=== PATIENT | female | born 1975 | race African-American/Black ===

== ENCOUNTER 2016-10-06 18:04 | Emergency (ER) | payer OTHER ==
[~2016-10-06] VITALS: Ht 157.5 cm; Wt 68.0 kg
[2016-10-06 18:28] VITALS: BP 156/85
[2016-10-06] MEDS ORDERED: IBUPROFEN 600 MG TAB PO ONE (20:15)
[2016-10-06] MEDS ORDERED: ONDANSETRON ODT 4 MG TAB PO ONE (20:15)
== END 2016-10-06 21:50 | disposition home or self-care (01) ==
LOC: ER 18:06
DX: R51 Headache (principal); R11.0 Nausea
CPT/HCPCS: 70450; 81025; 99284; Q0162